=== PATIENT | male | born 1970 | race American Indian/Alaskan Native ===

== ENCOUNTER 2016-04-19 12:45 | Emergency (ER) | payer BC ==
--- NOTE | 2016-04-19 15:13 | Emergency Department Report ---
Chief Complaint: Dizziness Stated Complaint: DIZZINESS/LIGHTHEADED Time Seen by Provider: 04/19/16 15:12 - HPI History of Present Illness: Patient here complaining of lightheadedness and dizziness for one and a half today. Patient blood pressure is 153/102 and he denies high blood pressure but he does not take his blood pressure. He said he's been having headache on and off none today. He is having generalized body pain at 10 out of 10. He denies any chest pain or shortness of breath. He denies any syncope episode. - ROS Review of Systems: All systems are negative unless stated in HPI above. - Exam Vital Signs: Vital Signs 04/19/16 13:24 Temperature 98.3 F Pulse Rate 65 Respiratory 20 Rate Blood Pressure 153/102 O2 Sat by Pulse 99 Oximetry MSE screening note: Focused history and physical exam performed. Due to findings the following was ordered: ED Disposition for MSE Condition: Stable
[2016-04-19 15:55] LABS: Bilirubin,Urine NEG (Negative); Blood,Urine NEG (Negative); Ketones,Urine NEG (Negative); Leukocyte Esterase,Urine NEG (Negative); Mucus,Urine FEW /HPF; Nitrite,Urine NEG (Negative); Protein,Urine <15 mg/dL mg/dL (Negative); WBC,Urine < 1.0 /HPF (0.0-6.0)
[2016-04-19 16:12] LABS: Basophils % (Auto) 0.9 % (0.0-1.8); Eosinophils % (Auto) 3.9 % (0.0-4.3); Hematocrit 41.1 % (35.5-45.6); Hemoglobin 13.3 gm/dl (11.8-15.2); Mean Corpuscular HGB Conc 32 % (32-34); Mean Corpuscular Hemoglobin 23 pg (28-32); Mean Corpuscular Volume 71 fl (84-94); Platelet Count 196 K/mm3 (140-440); Red Blood Count 5.77 M/mm3 (3.65-5.03); White Blood Count 4.9 K/mm3 (4.5-11.0)
[2016-04-19 16:27] LABS: Creatine Kinase MB 5.1 ng/mL (0.0-4.0)
[2016-04-19 16:29] LABS: Alanine Aminotransferase 15 units/L (7-56); Albumin/Globulin Ratio 1.3 %; Alkaline Phosphatase 66 units/L (35-129); Bilirubin,Total 0.4 mg/dL (0.1-1.2); Blood Urea Nitrogen 16 mg/dL (9-20); Calcium 8.8 mg/dL (8.4-10.2); Carbon Dioxide 25 mmol/L (22-30); Chloride 99.7 mmol/L (98-107); Glucose 90 mg/dL (75-100); Potassium 4.1 mmol/L (3.6-5.0); Sodium 136 mmol/L (137-145); Total Protein 7.1 g/dL (6.3-8.2)
[2016-04-19 16:30] LABS: Anion Gap 15 mmol/L
--- NOTE | 2016-04-19 22:04 | Emergency Department Report ---
HPI - General Chief Complaint: Dizziness Time Seen by Provider: 04/19/16 15:12 - HPI HPI: Room 23 The patient is a 45-year-old male presenting with a chief complaint of dizziness. The patient states 2 nights ago while at work climbing up a ladder began to feel lightheaded and dizzy. Patient states it felt like room was moving and it would increase with any movements. Patient admits to mild headache that was intermittent and frontal origin. Patient denies any preceding trauma. Patient denies any history of fever nausea or vomiting. 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 heart of a runner.") - Surgical History Past Surgical History?: No Additional Surgical History: Oral surgery - Family History Family history: no significant - Social History Smoking Status: Never Smoker Substance Use Type: None (denies illicit drug use), Alcohol (occasional) - Medications Home Medications: Home Medications Medication Instructions Recorded Confirmed Last Taken Type Meclizine [Antivert] 25 mg PO TID PRN #20 tablet 04/19/16 Unknown Rx ED Review of Systems ROS: Stated complaint: DIZZINESS/LIGHTHEADED Other details as noted in HPI Comment: All other systems reviewed and negative Constitutional: denies: chills, fever Eyes: denies: eye pain, eye discharge, vision change ENT: denies: ear pain, throat pain Respiratory: denies: cough, shortness of breath, wheezing Cardiovascular: denies: chest pain, palpitations Endocrine: no symptoms reported Gastrointestinal: denies: abdominal pain, nausea, diarrhea Genitourinary: denies: urgency, dysuria Musculoskeletal: denies: back pain, joint swelling, arthralgia Skin: denies: rash, lesions Neurological: headache, vertigo Psychiatric: denies: anxiety, depression Hematological/Lymphatic: denies: easy bleeding, easy bruising Physical Exam - Physical Exam Vital Signs: Vital Signs 04/19/16 04/19/16 13:24 21:22 Temperature 98.3 F Pulse Rate 65 51 L Respiratory 20 16 Rate Blood Pressure 153/102 Blood Pressure 141/82 [Right] O2 Sat by Pulse 99 97 Oximetry Physical Exam: GENERAL: The patient is well-developed well-nourished male lying on stretcher not appearing to be in acute distress. [] HEENT: Normocephalic. Atraumatic. Extraocular motions are intact. Patient has moist mucous membranes. No nystagmus NECK: Supple. Trachea midline CHEST/LUNGS: Clear to auscultation. There is no respiratory distress noted. HEART/CARDIOVASCULAR: Regular. There is no tachycardia. There is no gallop rub or murmur. ABDOMEN: Abdomen is soft, nontender. Patient has normal bowel sounds. There is no abdominal distention. SKIN: There is no rash. There is no edema. There is no diaphoresis. NEURO: The patient is awake, alert, and oriented. The patient is cooperative. The patient has no focal neurologic deficits. The patient has normal speech. Cranial nerves II through XII grossly intact, no drift, no dysmetria noted with [id number] bilaterally MUSCULOSKELETAL: There is no evidence of acute injury. ED Course Vital Signs 04/19/16 04/19/16 13:24 21:22 Temperature 98.3 F Pulse Rate 65 51 L Respiratory 20 16 Rate Blood Pressure 153/102 Blood Pressure 141/82 [Right] O2 Sat by Pulse 99 97 Oximetry ED Medical Decision Making - Lab Data Result diagrams: 04/19/16 15:49 04/19/16 15:49 Laboratory Tests 04/19/16 04/19/16 04/19/16 15:40 15:49 15:49 WBC 4.9 RBC 5.77 H Hgb 13.3 Hct 41.1 MCV 71 L MCH 23 L MCHC 32 RDW 15.0 Plt Count 196 Lymph % (Auto) 32.4 Prentiss % (Auto) 8.5 H Eos % (Auto) 3.9 Baso % (Auto) 0.9 Lymph # 1.6 Prentiss # 0.4 Eos # 0.2 Baso # 0.0 Seg Neutrophils % 54.3 Seg Neutrophils # 2.6 Sodium Potassium Chloride Carbon Dioxide Anion Gap BUN Creatinine Estimated GFR BUN/Creatinine Ratio Glucose Calcium Total Bilirubin AST ALT Alkaline Phosphatase Total Creatine Kinase 508 H CK-MB (CK-2) 5.1 H CK-MB (CK-2) Rel Index 1.0 Troponin T Total Protein Albumin Albumin/Globulin Ratio Urine Color Yellow Urine Turbidity Clear Urine pH 6.0 Ur Specific [place] 1.021 Urine Protein <15 mg/dl Urine Glucose (UA) Neg Urine Ketones Neg Urine Blood Neg Urine Nitrite Neg Urine Bilirubin Neg Urine Urobilinogen 2.0 Ur Leukocyte Esterase Neg Urine WBC (Auto) < 1.0 Urine RBC (Auto) 5.0 U Epithel Cells (Auto) < 1.0 Urine Mucus Few 04/19/16 15:49 WBC RBC Hgb Hct MCV MCH MCHC RDW Plt Count Lymph % (Auto) [place] % (Auto) Eos % (Auto) Baso % (Auto) Lymph # [place]rent[place] # Eos # Baso # Seg Neutrophils % Seg Neutrophils # Sodium 136 L Potassium 4.1 Chloride 99.7 Carbon Dioxide 25 Anion Gap 15 BUN 16 Creatinine 1.0 Estimated GFR > 60 BUN/Creatinine Ratio 16.00 Glucose 90 Calcium 8.8 Total Bilirubin 0.4 AST 26 ALT 15 Alkaline Phosphatase 66 Total Creatine Kinase CK-MB (CK-2) CK-MB (CK-2) Rel Index Troponin T < 0.010 Total Protein 7.1 Albumin 4.0 Albumin/Globulin Ratio 1.3 Urine Color Urine Turbidity Urine pH Ur Specific [place] Urine Protein Urine Glucose (UA) Urine Ketones Urine Blood Urine Nitrite Urine Bilirubin Urine Urobilinogen Ur Leukocyte Esterase Urine WBC (Auto) Urine RBC (Auto) U Epithel Cells (Auto) Urine Mucus - EKG Data -: EKG Interpreted by Me EKG shows normal: sinus rhythm Rate: bradycardia (54 bpm) - EKG Data When compared to previous EKG there are: previous EKG unavailable Interpretation: nonspecific ST-T wave nigel - Radiology Data Radiology results: report reviewed (CT head), image reviewed (CT head) CT head (read by radiologist)- no abnormalities are seen - Differential Diagnosis Central vertigo, peripheral vertigo, ICH, intracranial mass Critical care attestation.: If time is entered above; I have spent that time in minutes in the direct care of this critically ill patient, excluding procedure time. ED Disposition Clinical Impression: Vertigo Disposition: DISCHARGED TO HOME OR SELFCARE Is pt being admited?: No Does the pt Need Aspirin: No Condition: Stable Instructions: Vertigo (ED) Additional Instructions: Return to the emergency department immediately should you develop worsening symptoms, fever, inability to tolerate food or liquid or any other concerns. Prescriptions: Meclizine [Antivert] 25 mg PO TID PRN #20 tablet PRN Reason: Vertigo Referrals: PILLO MENDOZA MD [Staff Physician] - 3-5 Days (Dr. Mendoza is a primary physician. Please follow up with him to be established as a patient) MARYURI WASHINGTON MD [Staff Physician] - 3-5 Days (Dr. Washington is a neurologist. Please follow up with him for further evaluation) Time of Disposition: 23:24
--- NOTE | 2016-04-19 23:01 | Cat Scan Report ---
FINAL REPORT PROCEDURE: CT HEAD/BRAIN WO CON TECHNIQUE: Computerized tomography of the head was performed without contrast material. HISTORY: dizziness COMPARISON: No prior studies are available for comparison. FINDINGS: The visualized portions of the paranasal sinuses are clear. Mastoid air cells are clear. There is no calvarial fracture. There is no hydrocephalus. No acute intracranial hemorrhage or mass effect is seen. There is no evidence of acute CVA. IMPRESSION: No abnormalities are seen.
[2016-04-20 00:23] VITALS: BP 142/78
== END 2016-04-20 00:22 | disposition home or self-care (01) ==
LOC: ED 12:45
DX: R42 Dizziness and giddiness (principal); Z88.0 Allergy status to penicillin
CPT/HCPCS: 36415; 70450; 80053; 81001; 82550; 82553; 84484; 85025; 93005; 93010